=== PATIENT | male | born 1965 | race Caucasian/White ===

== ENCOUNTER 2022-12-12 16:23 | Inpatient (IN) | payer SELFPAY ==
[2022-12-12 18:31] VITALS: BMI 21.5
[2022-12-12] MEDS ORDERED: Guaifenesin DM 100-10/5 ML UDCUP PO PRN (19:37)
[2022-12-12] MEDS ORDERED: Ondansetron PF 4 MG/2 ML Vial IVP PRN (19:37)
[2022-12-12] MEDS ORDERED: Calcium Carbonate 500 MG ChewTAB PO PRN (19:37)
[2022-12-12] MEDS ORDERED: Acetaminophen 325 MG TAB PO PRN (19:37)
[2022-12-12] MEDS ORDERED: Senokot S 8.6-50 MG TAB PO PRN (19:37)
[2022-12-12] MEDS ORDERED: Morphine 2 MG/ML SYRINGE SLOW IVP PRN (19:42)
[2022-12-12] MEDS ORDERED: Sodium Chloride 0.9% 500 ML IV SCH (19:45)
[2022-12-12] MEDS ORDERED: Thiamine HCl 200 MG/2 ML VIAL SLOW IVP SCH (19:45)
[2022-12-12] MEDS ORDERED: Ketorolac Tromethamine 30 MG/ML VIAL IVP SCH (20:00)
[2022-12-12 20:31] LABS: CK (CPK) 39 U/L (30-200); Magnesium 1.5 mg/dL (1.6-2.6)
[2022-12-12 20:52] LABS: CRP (Inflammatory) 11.62 mg/dL (= or < 0.5)
[2022-12-12] MEDS ORDERED: Meropenem 1 GM in Sodium Chloride 0.9% 100 ML IVPB SCH (21:00)
[2022-12-12 21:36] LABS: HIV (1/2) Antibody/Antigen Non-Reactive (NonReactive); HIV 1/2 INDEX 0.17 S/CO (<1.00)
[2022-12-12] MEDS ORDERED: Vancomycin HCl 500 MG in Sodium Chloride 0.9% 100 ML IVPB SCH (22:00)
[2022-12-12] MEDS: Dextrose 5 % And 0.9 % NaCl 1,000 ML IV SCH (22:01)
[2022-12-12] MEDS: HYDROcodone/Acetaminophen 5/325 mg Tablet PO PRN (22:04)
[2022-12-12] MEDS: Nicotine 14 MG PATCH TD SCH (22:06)
[2022-12-12] MEDS: clonazePAM 1 MG TAB PO PRN (23:03)
[2022-12-12] MEDS ORDERED: Magnesium 2 GM/50 ML(in water) 2 GM in Premix Bag 1 BAG IVPB SCH (23:59)
[2022-12-13 04:46] LABS: Hematocrit 40.6 % (38.8-50.0); Hemoglobin 14.1 g/dL (13.5-17.5); Mean Corpuscular HGB CONC 34.7 g/dL (32.0-36.0); Mean Corpuscular Hemoglobin 34.9 pg (27.0-33.0); Mean Corpuscular Volume 100.5 fl (81.2-95.1); Platelet Count 159 10x3/uL (150-450); RBC Distribution Width 12.4 % (11.5-14.5); Red Blood Cell (RBC) Count 4.04 10x6/uL (4.32-5.72); White Blood Cell (WBC) Count 18.1 10x3/uL (3.5-10.5)
[2022-12-13 04:47] LABS: MDiff Complete? YES
[2022-12-13 04:56] LABS: ALT (SGPT) 161 U/L (8-55); AST (SGOT) 173 U/L (5-34); Albumin 2.9 g/dL (3.5-5.0); Alkaline Phosphatase 91 U/L (40-110); Anion Gap 14 mmol/L (10-20); BUN (Urea Nitrogen) 13 mg/dL (8.4-25.7); Bilirubin, Total 1.8 mg/dL (0.2-1.2); Calc. Creatinine Clearance 96 mL/min (70-130); Calcium 7.7 mg/dL (7.8-10.44); Carbon Dioxide 22 mmol/L (22-29); Chloride 97 mmol/L (98-107); Estimated GFR 102; Globulin 3.2 g/dL (2.4-3.5); Glucose 85 mg/dL (70-105); Magnesium 2.4 mg/dL (1.6-2.6); Potassium 4.2 mmol/L (3.5-5.1); Protein, Total 6.1 g/dL (6.0-8.3); Sodium 129 mmol/L (136-145)
[2022-12-13 05:41] LABS: Band 9 % (5-11); Lymphocytes 7 % (21-51); Monocytes 12 % (0-10); Neutrophil 72 % (42-75)
[2022-12-13] MEDS: Dextrose 5 % And 0.9 % NaCl 1,000 ML IV SCH ×2 (05:42→15:16)
[2022-12-13] MEDS: Vancomycin HCl 1 GM in Sodium Chloride 0.9% 250 ML 250 ML IVPB SCH ×2 (05:43→17:49)
[2022-12-13 05:44] LABS: Platelet Adequacy Comment Appears Adequate; RBC Morph Comment Within Normal Limits
[2022-12-13] MEDS: Meropenem 1 GM in Sodium Chloride 0.9% 100 ML IVPB SCH ×3 (07:41→21:25)
[2022-12-13] MEDS: Magnesium Oxide 400 MG TAB PO SCH (10:09)
[2022-12-13] MEDS: Thiamine 100 MG TAB PO SCH (10:09)
[2022-12-13] MEDS: Folic Acid 1 MG TAB PO SCH (10:09)
[2022-12-13] MEDS: HYDROcodone/Acetaminophen 5/325 mg Tablet PO PRN ×3 (10:13→23:43)
[2022-12-13 13:07] LABS: Hemoglobin A1c 4.8 % (4.0-6.0)
[2022-12-13 13:25] LABS: HBCM Index 0.06 S/CO (0-0.79); Hep A IgM AB Non-Reactive S/CO (NonReactive); Hep A IgM S/CO 0.19 S/CO (0-0.79); Hepatitis B Core IgM Abs Non-Reactive S/CO (NonReactive)
[2022-12-13 13:30] LABS: Hep C IgG Ab Reflex HepC Qnt S/CO (NonReactive); Hep C Index 15.45 S/CO (0-0.79)
[2022-12-13 14:04] LABS: HBSAg Index 0.42 S/CO (0-0.99); Hep B Surf Ag Non-Reactive S/CO (NonReactive)
[2022-12-13] MEDS: Nicotine 14 MG PATCH TD SCH (21:23)
[2022-12-13] MEDS: Transdermal Patch Removal TOP SCH (21:24)
[2022-12-13] MEDS: clonazePAM 1 MG TAB PO PRN (23:44)
[2022-12-14] MEDS: Dextrose 5 % And 0.9 % NaCl 1,000 ML IV SCH ×2 (02:36→07:48)
[2022-12-14] MEDS: Vancomycin HCl 1 GM in Sodium Chloride 0.9% 250 ML 250 ML IVPB SCH ×3 (05:26→23:27)
[2022-12-14 05:29] LABS: #Basophils 0.1 10x3/uL (0.0-0.2); #Eosinphils 0.1 10x3/uL (0.0-0.5); #Monocytes 1.2 10x3/uL (0.0-1.1); #Neutrophils 10.3 10x3/uL (1.5-8.4); %Basophils 0.5 % (0.0-2.0); %Eosinophils 0.8 % (0.0-6.0); %Lymphocytes 7.4 % (18.0-47.0); %Monocytes 9.4 % (0.0-10.0); Hematocrit 36.3 % (38.8-50.0); Hemoglobin 12.5 g/dL (13.5-17.5); Mean Corpuscular HGB CONC 34.4 g/dL (32.0-36.0); Mean Corpuscular Hemoglobin 34.9 pg (27.0-33.0); Mean Corpuscular Volume 101.4 fl (81.2-95.1); Mean Platelet Volume 10.3 fl (7.4-10.4); Platelet Count 195 10x3/uL (150-450); RBC Distribution Width 12.6 % (11.5-14.5); Red Blood Cell (RBC) Count 3.58 10x6/uL (4.32-5.72); White Blood Cell (WBC) Count 12.8 10x3/uL (3.5-10.5)
[2022-12-14] MEDS: HYDROcodone/Acetaminophen 5/325 mg Tablet PO PRN ×3 (05:32→23:49)
[2022-12-14 05:40] LABS: Vancomycin, Trough 5.4 ug/mL
[2022-12-14 05:45] LABS: ALT (SGPT) 200 U/L (8-55); AST (SGOT) 247 U/L (5-34); Albumin 2.6 g/dL (3.5-5.0); Alkaline Phosphatase 117 U/L (40-110); Anion Gap 8 mmol/L (10-20); BUN (Urea Nitrogen) 12 mg/dL (8.4-25.7); Bilirubin, Total 1.6 mg/dL (0.2-1.2); Calc. Creatinine Clearance 106 mL/min (70-130); Calcium 7.8 mg/dL (7.8-10.44); Carbon Dioxide 26 mmol/L (22-29); Chloride 102 mmol/L (98-107); Estimated GFR 105; Globulin 3.1 g/dL (2.4-3.5); Glucose 102 mg/dL (70-105); Potassium 3.9 mmol/L (3.5-5.1); Protein, Total 5.7 g/dL (6.0-8.3); Sodium 132 mmol/L (136-145)
[2022-12-14] MEDS: Meropenem 1 GM in Sodium Chloride 0.9% 100 ML IVPB SCH ×3 (07:02→23:26)
[2022-12-14] MEDS: Magnesium Oxide 400 MG TAB PO SCH (07:43)
[2022-12-14] MEDS: Folic Acid 1 MG TAB PO SCH (07:43)
[2022-12-14] MEDS: Multivitamin W/ Minerals 1 TAB PO SCH (07:43)
[2022-12-14] MEDS: Thiamine 100 MG TAB PO SCH (07:44)
[2022-12-14] MEDS: Morphine 2 MG/ML VIAL SLOW IVP PRN ×2 (10:54→16:52)
[2022-12-14] MEDS: Bacitracin 1 PK TOP SCH ×2 (15:47→23:24)
[2022-12-14] MEDS ORDERED: Lidocaine 4% Topical Sol 50 ML BOT TOP PRN (17:09)
[2022-12-14] MEDS: Nicotine 14 MG PATCH TD SCH (23:24)
[2022-12-14] MEDS: Transdermal Patch Removal TOP SCH (23:24)
[2022-12-14] MEDS: clonazePAM 1 MG TAB PO PRN (23:49)
[2022-12-15 05:32] LABS: #Basophils 0.1 10x3/uL (0.0-0.2); #Eosinphils 0.2 10x3/uL (0.0-0.5); #Neutrophils 6.6 10x3/uL (1.5-8.4); %Basophils 0.6 % (0.0-2.0); %Lymphocytes 11.3 % (18.0-47.0); %Monocytes 10.7 % (0.0-10.0); %Neutrophils 74.6 % (40.0-75.0); Hemoglobin 13.7 g/dL (13.5-17.5); Mean Corpuscular HGB CONC 35.1 g/dL (32.0-36.0); Mean Corpuscular Hemoglobin 34.9 pg (27.0-33.0); Mean Corpuscular Volume 99.2 fl (81.2-95.1); Mean Platelet Volume 9.9 fl (7.4-10.4); Platelet Count 252 10x3/uL (150-450); RBC Distribution Width 12.6 % (11.5-14.5); Red Blood Cell (RBC) Count 3.93 10x6/uL (4.32-5.72); White Blood Cell (WBC) Count 8.9 10x3/uL (3.5-10.5)
[2022-12-15 05:37] LABS: ALT (SGPT) 290 U/L (8-55); AST (SGOT) 366 U/L (5-34); Albumin 2.7 g/dL (3.5-5.0); Alkaline Phosphatase 172 U/L (40-110); Anion Gap 10 mmol/L (10-20); BUN (Urea Nitrogen) 10 mg/dL (8.4-25.7); Calc. Creatinine Clearance 118 mL/min (70-130); Carbon Dioxide 25 mmol/L (22-29); Chloride 104 mmol/L (98-107); Estimated GFR 109; Globulin 3.3 g/dL (2.4-3.5); Glucose 87 mg/dL (70-105); Sodium 135 mmol/L (136-145)
[2022-12-15 05:38] LABS: Vancomycin, Trough 12.3 ug/mL
[2022-12-15] MEDS: Vancomycin HCl 1 GM in Sodium Chloride 0.9% 250 ML 250 ML IVPB SCH ×3 (06:35→23:04)
[2022-12-15] MEDS: Meropenem 1 GM in Sodium Chloride 0.9% 100 ML IVPB SCH ×3 (06:35→23:03)
[2022-12-15] MEDS: HYDROcodone/Acetaminophen 5/325 mg Tablet PO PRN ×3 (07:36→23:05)
[2022-12-15] MEDS: Magnesium Oxide 400 MG TAB PO SCH (08:43)
[2022-12-15] MEDS: Folic Acid 1 MG TAB PO SCH (08:44)
[2022-12-15] MEDS: Thiamine 100 MG TAB PO SCH (08:44)
[2022-12-15] MEDS: Multivitamin W/ Minerals 1 TAB PO SCH (08:44)
[2022-12-15] MEDS: Bacitracin 1 PK TOP SCH ×2 (08:45→08:54)
[2022-12-15] MEDS: Morphine 2 MG/ML VIAL SLOW IVP PRN (12:01)
[2022-12-15] MEDS: Nicotine 14 MG PATCH TD SCH (23:05)
[2022-12-15] MEDS: clonazePAM 1 MG TAB PO PRN (23:06)
[2022-12-15] MEDS: Transdermal Patch Removal TOP SCH (23:08)
[2022-12-16 02:24] VITALS: BP 159/79; TEMP 98.2
[2022-12-16] MEDS ORDERED: Bacitracin 1 PK TOP SCH (09:00)
[2022-12-16 18:13] LABS: HCV RNA, log10 6.305 (.); Hep C PCR-Quant 2020000 IU/mL (.)
== END 2022-12-16 00:35 | disposition short-term general hospital (02) | DRG 872 ==
LOC: CSHTELE 17:58
PROVIDERS: ADMIT Family Medicine; ATTEND Family Medicine
DX: A41.9 Sepsis, unspecified organism (principal); L03.113 Cellulitis of right upper limb; E87.1 Hypo-osmolality and hyponatremia; D75.89 Other specified diseases of blood and blood-forming organs; F10.10 Alcohol abuse, uncomplicated; Z90.49 Acquired absence of other specified parts of digestive tract; Z79.899 Other long term (current) drug therapy; F17.210 Nicotine dependence, cigarettes, uncomplicated; R73.9 Hyperglycemia, unspecified; R03.0 Elevated blood-pressure reading, without diagnosis of hypertension; R76.8 Other specified abnormal immunological findings in serum
CPT/HCPCS: 36415; 80053; 80074; 80202; 82550; 83036; 83735; 84145; 85025; 86140; 87070; 87077; 87186; 87205; 87389; 87522; 97139; J1650; J1885; J2185; J2272; J3370; J3411; J3475; J3490; J7030; J7042; J7050